=== PATIENT | female | born 1970 | race Caucasian/White ===

== ENCOUNTER 2016-10-31 09:57 | Emergency (ER) | payer MEDICARE ==
[~2016-10-31] VITALS: Ht 162.6 cm; Wt 58.7 kg
[2016-10-31 10:37] LABS: HEMATOCRIT 46.1 % (36.0-46.0); MCH 29.9 PG (29.0-34.0); MCHC 33.2 G/DL (30.0-36.0); PLATELET COUNT 243 K/uL (156-360); RBC DIS.WIDTH-CV 13.9 % (11.8-14.6); RBC DIS.WIDTH-SD 44.8 % (39-53); RED BLOOD COUNT 5.12 M/uL (3.80-5.20); WHITE BLOOD COUNT 8.4 K/uL (4.1-10.2)
[2016-10-31] MEDS ORDERED: STIOLTO RESPIMAT4 GM IH (10:48)
[2016-10-31 10:49] LABS: CHLORIDE 107 mEq/L (99-109); POTASSIUM 3.3 mEq/L (3.7-5.4); SODIUM 145 mEq/L (136-147)
[2016-10-31] MEDS ORDERED: PROAIR HFA8.5 GM IH ×2 (10:49→12:13)
[2016-10-31 10:51] LABS: GLUCOSE 103 mg/dL (70-99)
[2016-10-31 10:53] LABS: ANION GAP 12 MEQ/L (2-14)
[2016-10-31 10:56] LABS: UREA NITROGEN (BUN) 9 mg/dL (9-23)
[2016-10-31 10:58] LABS: GFR ESTIMATE (CALCULATED) > 59 mL/min/
[2016-10-31 10:59] LABS: TROP-I INTERPRETATION NEGATIVE; TROPONIN-I < 0.01 ng/mL (0.0-0.30)
[2016-10-31] MEDS ORDERED: TESSALON PERLE100 MG PO (12:13)
[2016-10-31] MEDS ORDERED: ZITHROMAX Z-PA250 MG PO (12:13)
[2016-10-31] MEDS ORDERED: ROBITUSSIN NIG118 ML PO (12:13)
[2016-10-31 12:23] VITALS: BP 125/97
== END 2016-10-31 12:24 | disposition home or self-care (01) ==
LOC: EME 09:57
DX: J44.0 Chronic obstructive pulmonary disease with (acute) lower respiratory infection (principal); J20.9 Acute bronchitis, unspecified; E87.6 Hypokalemia; F17.210 Nicotine dependence, cigarettes, uncomplicated; Z71.6 Tobacco abuse counseling
CPT/HCPCS: 71020; 80048; 84484; 85027; 93005; 94640; 99281; 99284